=== PATIENT | female | born 1955 | race Caucasian/White ===

== ENCOUNTER 2020-01-30 05:44 | Observation (INO) | payer OTHER ==
[~2020-01-30] VITALS: Ht 160 cm; Wt 81.6 kg
--- NOTE | 2020-01-30 05:51 | Emergency Department Note ---
History of Present Illnes History of Present Illness Chief Complaint: Respiratory History of Present Illness This is a 64 year old female presents to the ED for MAXIMO since yesterd ay. Denies fevers. . (ANTONIO CARRERA DO) Past Medical/Family History Physician Review I have reviewed the patient's past medical and family history. Any updates have been documented here. (ANTONIO CARRERA DO) Social History Smoking Cessation: Current every day smoker Counseling Performed: Yes Alcohol Use: None Any Illegal Drug Use: No (ANTONIO CARRERA DO) Review of Systems Review of Systems Review of other systems All other systems reviewed and negative. (ANTONIO CARRERA DO) Physical Exam Related Data Allergies: Coded Allergies: No Known Allergies (Unverified , 01/30/20) Vital signs reviewed: Yes (ANTONIO CARRERA DO) Physical Exam CONSTITUTIONAL Constitutional: obese, ill appearing HENT HENT: normocephalic, atraumatic, oropharynx clear/moist, nose normal HENT L/R: left ext ear normal, right ext ear normal EYES Eyes: PERRL, conjunctivae normal NECK Neck: ROM normal PULMONARY Pulmonary: effort normal, breath sounds normal CARDIOVASCULAR Cardiovascular: regular rhythm, heart sounds normal, capillary refill normal, normal rate GASTROINTESTINAL Abdominal: soft, nontender, bowel sounds normal GENITOURINARY Genitourinary: exam deferred SKIN Skin: warm, dry MUSCULOSKELETAL Musculoskeletal: ROM normal NEUROLOGICAL Neurological: alert, oriented x 3, no gross motor or sensory deficits PSYCHOLOGICAL Psychological: mood/affect normal, judgement normal (ANTONIO CARRERA DO) Pulmonary: other (decreased BS's throughout with minimal end-exp wheezes) Cardiovascular: murmur (2/6 sys murmur) (YOLI BAHENA MD) Results Laboratory Laboratory Laboratory Tests Test 01/30/20 06:30 01/30/20 06:10 01/30/20 06:06 Lactic Acid Level 1.6 mmol/L (0.5-2.0) White Blood Count 14.99 x10e3/uL (4.8-10.8) Red Blood Count 5.18 x10e6/uL (3.6-5.1) Hemoglobin 15.3 g/dL (12.0-16.0) Hematocrit 44.9 % (34.2-44.1) Mean Corpuscular Volume 86.7 fL (81-99) Mean Corpuscular Hemoglobin 29.5 pg (28-32) Mean Corpuscular Hemoglobin Concent 34.1 g/dL (31-35) Red Cell Distribution Width 13.3 % (11.7-14.4) Platelet Count 296 x10e3/uL (140-360) Neutrophils (%) (Auto) 70.7 % (38.7-80.0) Lymphocytes (%) (Auto) 19.2 % (18.0-39.1) Monocytes (%) (Auto) 6.3 % (4.4-11.3) Eosinophils (%) (Auto) 2.4 % (0.0-6.0) Basophils (%) (Auto) 0.9 % (0.0-1.0) Neutrophils # (Auto) 10.6 (2.1-6.9) Lymphocytes # (Auto) 2.9 (1.0-3.2) Monocytes # (Auto) 1.0 (0.2-0.8) Eosinophils # (Auto) 0.4 (0.0-0.4) Basophils # (Auto) 0.1 (0.0-0.1) Absolute Immature Granulocyte (auto 0.08 x10e3/uL (0-0.1) Prothrombin Time 11.8 seconds (11.9-14.5) Prothromb Time International Ratio 0.82 Sodium Level 142 mmol/L (136-145) Potassium Level 4.6 mmol/L (3.5-5.1) Chloride Level 102 mmol/L (98-107) Carbon Dioxide Level 27 mmol/L (22-29) Anion Gap 17.6 mmol/L (8-16) Blood Urea Nitrogen 9 mg/dL (7-26) Creatinine 0.75 mg/dL (0.57-1.11) Estimat Glomerular Filtration Rate > 60 ML/MIN (60-) BUN/Creatinine Ratio 12 (6-25) Glucose Level 121 mg/dL (74-118) Calcium Level 10.1 mg/dL (8.4-10.2) Total Bilirubin 1.0 mg/dL (0.2-1.2) Aspartate Amino Transf (AST/SGOT) 25 IU/L (5-34) Alanine Aminotransferase (ALT/SGPT) 20 IU/L (0-55) Alkaline Phosphatase 90 IU/L (40-150) Creatine Kinase 60 IU/L (29-168) Creatine Kinase MB 1.50 ng/mL (0-5.0) Troponin I 0.010 ng/mL (0-0.300) B-Type Natriuretic Peptide 559.9 pg/mL (0-100) Total Protein 7.3 g/dL (6.5-8.1) Albumin 3.8 g/dL (3.5-5.0) Globulin 3.5 g/dL (2.3-3.5) Albumin/Globulin Ratio 1.1 (0.8-2.0) Lab results reviewed: Yes (YOLI BAHENA MD) Imaging Imaging results reviewed: Yes Impressions EXAMINATION: CHEST SINGLE (PORTABLE) COMPARISON: None INDICATION: Shortness of breath ^Y ^ERMD ORDER ^[id number] ^0655 ^Y DISCUSSION: Frontal view of the chest obtained at 0654 hours. HEART AND MEDIASTINUM: The heart is top normal in size. The aorta is mildly tortuous. LINES: None. LUNGS/PLEURA: The lungs are well inflated and clear. Mild peribronchial thickening. No interstitial edema. No pleural effusion or pneumothorax. BONES AND SOFT TISSUES: No focal osseous lesion. There are bilateral adan in the lower neck. IMPRESSION: Mild peribronchial thickening suggestive of bronchitis. No infiltrates. Signed by: Dr. Melissa Kaufman MD on 01/30/2020 8:09 AM (YOLI BAHENA MD) Diagnostics Tests Diagnostic test(s) reviewed: Yes (YOLI BAHENA MD) Procedures 12 Lead ECG Interpretation Geometrician: Interpreted by ED physician Date: Jan 30, 2020 Time: 06:08 Prior COTTON FARMER tracings: reviewed Rhythm: sinus rhythm Rate: normal BPM: 60 QRS axis: normal ST segments normal: Yes T wave depression: V1, V2 Other findings: LVH with strain Clinical Impression: non-specific ECG (ANTONIO CARRERA DO) Date: Jan 30, 2020 Time: 05:59 (YOLI BAHENA MD) Critical Care Time Subsequent provider I assumed direction of critical care for this patient from another provider of my specialty. (ANTONIO CARRERA DO) Assessment & Plan Assessment & Plan Final Impression: (1) HYPERTENSIVE URGENCY (ANTONIO CARRERA DO) Final Impression: (1) HYPERTENSIVE URGENCY (2) ACUTE BRONCHITIS, UNSPECIFIED (3) CHRONIC OBSTRUCTIVE PULMONARY DISEASE, UNSPECIFIED Assessment & Plan admit, spoke with Dr Box (YOLI BAHENA MD) Depart Disposition: ADMITTED ANTONIO CARRERA DO Jan 30, 2020 05:51 YOLI BAHENA MD Jan 30, 2020 08:00
[2020-01-30] MEDS ORDERED: ALBUTEROL SULF 0.083% NEB SOLN 3 ML NEB NEB STA (05:52)
[2020-01-30] MEDS ORDERED: METHYLPREDNISOLONE SOD SUCC 125 MG/2ML VIAL IV ONE (06:00)
[2020-01-30] MEDS ORDERED: ALBUTEROL/IPRATROPIUM 3 ML NEB NEB ONE (06:00)
[2020-01-30 06:30] LABS: BASOPHILS # (AUTO) 0.1 (0.0-0.1); BASOPHILS % 0.9 % (0.0-1.0); EOSINOPHILS # (AUTO) 0.4 (0.0-0.4); EOSINOPHILS % 2.4 % (0.0-6.0); HEMATOCRIT 44.9 % (34.2-44.1); HEMOGLOBIN 15.3 g/dL (12.0-16.0); LYMPHOCYTES # (AUTO) 2.9 (1.0-3.2); LYMPHOCYTES % 19.2 % (18.0-39.1); MEAN CORPUSCULAR HEMOGLOBIN 29.5 pg (28-32); MEAN CORPUSCULAR HGB CONC 34.1 g/dL (31-35); MEAN CORPUSCULAR VOLUME 86.7 fL (81-99); MONOCYTES % 6.3 % (4.4-11.3); NEUTROPHILS # (AUTO) 10.6 (2.1-6.9); NEUTROPHILS % 70.7 % (38.7-80.0); PLATELET COUNT 296 x10e3/uL (140-360); RED BLOOD COUNT 5.18 x10e6/uL (3.6-5.1); RED CELL DISTRIBUTION WIDTH 13.3 % (11.7-14.4)
[2020-01-30 06:56] LABS: ALANINE AMINOTRANSFERASE 20 IU/L (0-55); ALBUMIN 3.8 g/dL (3.5-5.0); ALBUMIN/GLOBULIN RATIO 1.1 (0.8-2.0); ALKALINE PHOSPHATASE 90 IU/L (40-150); ANION GAP 17.6 mmol/L (8-16); BLOOD UREA NITROGEN 9 mg/dL (7-26); BUN/CREATININE RATIO 12 (6-25); CALCIUM 10.1 mg/dL (8.4-10.2); CARBON DIOXIDE 27 mmol/L (22-29); CHLORIDE 102 mmol/L (98-107); CREATINE KINASE 60 IU/L (29-168); CREATININE, SERUM 0.75 mg/dL (0.57-1.11); EST GLOMERULAR FILTRATION RATE > 60 ML/MIN (60-); GLUCOSE 121 mg/dL (74-118); INR 0.82; POTASSIUM 4.6 mmol/L (3.5-5.1); PROTHROMBIN TIME 11.8 seconds (11.9-14.5); SODIUM 142 mmol/L (136-145)
[2020-01-30] MEDS ORDERED: ALBUTEROL SULFATE HFA 8GM INHALATION AEROSOL INH PRN (08:00)
--- NOTE | 2020-01-30 08:12 | Diagnostic Imaging Report ---
EXAMINATION: CHEST SINGLE (PORTABLE) COMPARISON: None INDICATION: Shortness of breath ^Y ^ERMD ORDER ^[id number] ^0655 ^Y DISCUSSION: Frontal view of the chest obtained at 0654 hours. HEART AND MEDIASTINUM: The heart is top normal in size. The aorta is mildly tortuous. LINES: None. LUNGS/PLEURA: The lungs are well inflated and clear. Mild peribronchial thickening. No interstitial edema. No pleural effusion or pneumothorax. BONES AND SOFT TISSUES: No focal osseous lesion. There are bilateral adan in the lower neck. IMPRESSION: Mild peribronchial thickening suggestive of bronchitis. No infiltrates. Signed by: Dr. Meilssa Kaufman MD on 01/30/2020 8:09 AM
[2020-01-30] MEDS ORDERED: ONDANSETRON HCL INJ 2MG/ML 2ML 2 MG/ML VIAL IV PRN ×2 (08:15→12:30)
[2020-01-30] MEDS ORDERED: FUROSEMIDE INJ 10 MG/ML 2 ML VIAL IV ONE (08:15)
--- OUTSIDE RECORDS SUMMARY | 2020-01-30 08:20 | XMS REPORT | Continuity of Care Document ---
Author Author [facility] t Organization [facility] Address [address] [place] [address] Dr. Rose [address] [place] [phone] Phone Unavailable Care Team Providers Care Abrasive Worker Name Role Phone Mansoor BAHENA Attphys Unavailable Soumya GRANGER Admphys Unavailable Problems This patient has no known problems. Allergies, Adverse Reactions, Alerts This patient has no known allergies or adverse reactions. Medications This patient has no known medications. Procedures This patient has no known procedures. Results Test Description Test Time Test Comments Results Result Comments Source CHEST SINGLE (PORTABLE) 2020-01-30 08:08:00 [place] [id number] Patient Name: PADILLA VENTURA MR #: [id number] : 1955 Age/Sex: 64/F Req #: [id number] Adm Physician: Ordered by: ANTONIO CARRERA DO Report #: [id number] Location: ER Room/Bed: Procedure: [id number] DX/CHEST SINGLE (PORTABLE) Exam Date: 01/30/20 Exam Time: 06 REPORT STATUS: Signed EXAMINATION: CHEST SINGLE (PORTABLE) COMPARISON: None INDICATION: Shortness of breath Y ERMD ORDER [id number] Y DISCUSSION: Frontal view of the chest obtained at 0654 hours. HEART AND MEDIASTINUM: The heart is top normal in size. The aorta is mildly tortuous. LINES: None. LUNGS/PLEURA: The lungs are well inflated and clear. Mild peribronchial thickening. No interstitial edema. No pleural effusion or pneumothorax. BONES AND SOFT TISSUES: No focal osseous lesion. There are bilateral adan in the lower neck. IMPRESSION: Mild peribronchial thickening suggestive of bronchitis. No infiltrates. Signed by: Dr. Elif Kaufman MD on 01/30/2020 8:09 AM Dictated By: ELIF KAUFMAN MD 8 Transcribed By: MEÑO on 01/30/20808 COPY TO: ANTONIO CARRERA DO
--- NOTE | 2020-01-30 08:29 | NUR ---
CALLED RESPIRATORY TO INFORM THEM THAT PATIENT HAS A BREATHING TREATMENT ORDERED.
[2020-01-30] MEDS: CEFTRIAXONE SOD 1 GM/NS 50 ML 50 ML IV SCH (08:42)
--- NOTE | 2020-01-30 08:46 | NUR ---
Patient states that she has had abdominal bloating for 2 weeks and pain in her LLQ. Patient also states that she had an episode of blood in her stool once. Dr. Garcia informed. No other additonal oders given.
[2020-01-30] MEDS: AZITHROMYCIN 500MG/NS 250 ML 250 ML IV SCH (09:55)
[2020-01-30] MEDS: ASPIRIN 81 MG ENTERIC COATED PO SCH (09:57)
[2020-01-30] MEDS: NICOTINE 14 MG/EA PATCH TOP SCH (10:00)
--- NOTE | 2020-01-30 10:05 | NUR ---
Patient complaining of nausea. MD aware given order to administer Zofran.
[2020-01-30 10:29] LABS: CLARITY,URINE CLEAR (CLEAR); COLOR,URINE YELLOW (YELLOW); LEUKOCYTE ESTERASE ,URINE NEGATIVE (NEGATIVE); NITRITE,URINE NEGATIVE (NEGATIVE)
[2020-01-30 10:30] LABS: BILIRUBIN,URINE NEGATIVE (NEGATIVE); KETONES,URINE NEGATIVE (NEGATIVE); PROTEIN,URINE DIPSTICK 2+ (NEGATIVE); URINE UROBILINOGEN 0.2 mg/dL (0.2 - 1)
[2020-01-30 10:36] LABS: WBC,URINE (MAN) 0-5 /HPF (0-5)
[2020-01-30 10:37] LABS: BACTERIA,URINE MODERATE /HPF; EPITHELIAL CELLS,URINE FEW /LPF; YEAST,URINE FEW
--- NOTE | 2020-01-30 10:46 | NUR ---
Report attempted was told that nurse would call back.
--- NOTE | 2020-01-30 11:10 | NUR ---
ATTEMPTED TO CALL REPORT UNABLE TO GET IN CONTACT WITH RECEIVING NURSE.
--- NOTE | 2020-01-30 11:30 | NUR ---
ATTEMPTED TO CALL REPORT UNABLE TO GET IN CONTACT WITH RECEIVING NURSE.
--- NOTE | 2020-01-30 11:37 | NUR ---
Per lab patient's covid test is negative. aware.
--- NOTE | 2020-01-30 11:42 | NUR ---
Called loss prevention and safety manager for Dr. Box to notify them that patient is negative for Covid. Wad given verbal order that patient no longer has to go to the covid unit.
--- NOTE | 2020-01-30 11:49 | NUR ---
consult [id number] This is a 64 year old female presents to the ED for MAXIMO since yesterday. Denies fevers. . PATIENT seen and examined full note dictated SOB r/o pneumonia r/o fluid overload will follow
--- NOTE | 2020-01-30 11:54 | Diagnostic Imaging Report ---
EXAM: CT Chest WITHOUT intravenous contrast 01/30/2020 10:40 AM INDICATION: Shortness of breath COMPARISON: Chest radiograph of earlier the same day TECHNIQUE: Chest was scanned utilizing a multidetector helical scanner from the lung apex through the level of the adrenal glands without administration of IV contrast. Coronal and sagittal reformations were obtained. Routine protocol was performed. IV CONTRAST: None RADIATION DOSE: Total DLP: 479 mGy*cm. Dose modulation, iterative reconstruction, and/or weight based adjustment of the mA/kV was utilized to reduce the radiation dose to as low as reasonably achievable. COMPLICATIONS: None FINDINGS: LINES/ TUBES: None. LUNGS AND AIRWAYS: The central airways are patent. No focal consolidation or pulmonary edema. Minimal dependent subsegmental atelectasis. PLEURA: The pleural spaces are clear. HEART AND MEDIASTINUM: The thyroid gland is normal. No mediastinal, hilar or axillary lymphadenopathy. The heart is normal in size.. There is no pericardial effusion. Scattered atherosclerotic calcifications involve the thoracic aorta and coronary arteries. UPPER ABDOMEN: Hepatic steatosis. No acute findings. BONES: No acute osseous injury. No suspicious lytic or blastic lesions. SOFT TISSUES: Unremarkable. IMPRESSION: No acute intrathoracic abnormality. Hepatic steatosis. Atherosclerotic calcifications including of the coronary arteries. Signed by: Tobias Carney MD on 01/30/2020 11:51 AM
--- NOTE | 2020-01-30 12:20 | NUR ---
PATIENT RECEIVED FROM ER PER STRETCHER. ALERT AND VERBALLY RESPONSIVE, DENIED PAIN AT THIS TIME. ABLE TO TRANSFER SELF FROM STRETCHER TO BED. SKIN WARM AND DRY TO TOUCH, RESPIRATION EVEN AND UNLABORED, WITH O2 IN PLACE AT 2L VIA N/C. ABDOMEN SOFT AND NON DISTENDED. TELEMETRY BOX [address]. PATIENT ORIENTED TO SURROUNDINGS. BED IN LOWER POSITION, CALL LIGHT AT REACH. INSTRUCTED TO CALL FOR ASSISTANCE NEEDED.
[2020-01-30 12:25] VITALS: BP 144/41
[2020-01-30] MEDS ORDERED: MELATONIN 5 MG TABLET PO PRN (12:30)
[2020-01-30] MEDS ORDERED: HYDRALAZINE HCL 20 MG/ML VIAL IV PRN (12:30)
[2020-01-30] MEDS ORDERED: ACETAMINOPHEN 325 MG TAB PO PRN (12:30)
[2020-01-30 12:31] VITALS: BP 144/46
[2020-01-30] MEDS ORDERED: CHOLESTYRAMINE 4 GM PACKET PO PRN (12:45)
[2020-01-30 12:49] LABS: CREATINE KINASE MB 2.1 ng/mL (0-5.0)
[2020-01-30] MEDS ORDERED: FLUCONAZOLE 200 MG/100 ML 100 ML IV ONE (13:00)
[2020-01-30] MEDS ORDERED: SODIUM CHLORIDE 0.9% 250ML 250 ML ONE (13:15)
--- NOTE | 2020-01-30 15:45 | NUR ---
PATIENT IN BED WITH HEAD OF BED ELEVATED TALKING ON THE PHONE, NO DISTRESS NOTED. CALL LIGHT AT REACH.
[2020-01-30 15:51] VITALS: BP 135/54
--- NOTE | 2020-01-30 17:05 | Consultation ---
DATE OF CONSULTATION: CHIEF COMPLAINT: Dyspnea and cough. HISTORY OF PRESENT ILLNESS: The patient is a 64-year-old woman. She notes worsening dyspnea over 2 days. She noted some cough, but no phlegm production. She did not complain of fevers. She denied any chest pain. She came to the emergency department. She received some Solu-Medrol along with some oxygen and nebulizer. She also received some Lasix and feels much better. PAST SURGICAL HISTORY: Status post tubal ligation. PAST MEDICAL HISTORY: 1. History of "leaky heart valves in the past.". 2. No prior history of asthma or COPD. ALLERGIES: THERE ARE NO KNOWN DRUG ALLERGIES. SOCIAL HISTORY: The patient has been a smoker. She is not an active drinker. FAMILY HISTORY: Family history is noncontributory. REVIEW OF SYSTEMS: She has no fever. She has no headache. She is not having any neck pain. She denies any chest pain. She is not having any difficulty with palpitations. She did note some dyspnea that has improved. She has some cough. She has no abdominal pain. She has no nausea or vomiting. She has no leg edema. She has no focal neurological complaints. PHYSICAL EXAMINATION: VITAL SIGNS: The blood pressure is 144/46 and the saturation is 94%. Pulse is 63. HEENT: Shows no facial swelling or erythema. CARDIAC: Reveals regular rate and rhythm with normal S1 and S2. LUNGS: Auscultation of lungs reveals clear breath sounds bilaterally. There is a prolonged expiratory phase. ABDOMEN: Soft and nontender. There is no rebound or guarding. EXTREMITIES: Shows no leg edema or calf tenderness. There is no cyanosis or clubbing. SKIN: Shows no rashes. NEUROLOGICAL: Shows no focal abnormalities. LABORATORY DATA: White blood cell count is 14.99 and hemoglobin is 15.3. The platelet count is 296. The BUN to creatinine ratio is 9 to 0.75. The BNP is 559. Other electrolytes within normal limits. RADIOGRAPHIC DATA: CT scan of the chest shows no acute intrathoracic abnormality. There is some hepatic steatosis. IMPRESSION: 1. Chronic obstructive pulmonary disease with acute exacerbation. 2. Dyspnea. 3. Hepatic steatosis. PLAN: 1. Echocardiogram and cardiac evaluation. 2. Continue bronchodilators. 3. Low-dose Lasix. 4. Smoking cessation. MD RAUDEL Barrera/JUSTUSL /[id number]
--- NOTE | 2020-01-30 19:00 | NUR ---
RECEIVED PATIENT IN BEDSIDE SHIFT REPORT. PATIENT RESTING IN BED AT THIS TIME. NO SOB REPORTED. NO PAIN REPORTED. NO S&S OF DISTRESS NOTED. BED LOCKED IN LOWEST POSITION, SIDE RAILS UPX2, CALL LIGHT IN REACH.
--- NOTE | 2020-01-30 19:08 | NUR ---
BED SIDE SHIFT REPORT GIVEN TO ON COMING NURSE. PATIENT IN BED RESTING WITH CALL LIGHT AT REACH.
[2020-01-30] MEDS ORDERED: TRAZODONE HCL50 MG PO (20:11)
[2020-01-30] MEDS ORDERED: METOPROLOL TART50 MG PO (20:11)
[2020-01-30] MEDS ORDERED: PRAMIPEXOLE D0.25 MG PO (20:11)
[2020-01-30] MEDS ORDERED: SERTRALINE HCL100 MG PO (20:11)
[2020-01-30] MEDS ORDERED: LEVOTHYROXINE50 MCG PO (20:11)
[2020-01-30 20:52] VITALS: BP 152/67
[2020-01-30] MEDS: PRAMIPEXOLE DIHYDROCHLORIDE 0.25 MG TAB PO SCH (22:10)
[2020-01-30] MEDS: FAMOTIDINE 20 MG/2 ML VIAL IV SCH (22:10)
[2020-01-31] VITALS: BP 101/55
[2020-01-31 01:38] LABS: CREATINE KINASE MB 1.9 ng/mL (0-5.0)
[2020-01-31 04:00] VITALS: BP 116/63
[2020-01-31 06:45] LABS: BASOPHILS # (AUTO) 0.1 (0.0-0.1); BASOPHILS % 0.2 % (0.0-1.0); EOSINOPHILS # (AUTO) 3.3 (0.0-0.4); EOSINOPHILS % 15.3 % (0.0-6.0); HEMATOCRIT 40.4 % (34.2-44.1); HEMOGLOBIN 13.7 g/dL (12.0-16.0); LYMPHOCYTES # (AUTO) 1.6 (1.0-3.2); LYMPHOCYTES % 7.2 % (18.0-39.1); MEAN CORPUSCULAR HEMOGLOBIN 29.5 pg (28-32); MEAN CORPUSCULAR HGB CONC 33.9 g/dL (31-35); MEAN CORPUSCULAR VOLUME 86.9 fL (81-99); MONOCYTES # (AUTO) 1.1 (0.2-0.8); MONOCYTES % 5.2 % (4.4-11.3); NEUTROPHILS # (AUTO) 15.4 (2.1-6.9); NEUTROPHILS % 71.5 % (38.7-80.0); PLATELET COUNT 272 x10e3/uL (140-360); RED BLOOD COUNT 4.65 x10e6/uL (3.6-5.1); RED CELL DISTRIBUTION WIDTH 13.3 % (11.7-14.4)
[2020-01-31 07:16] LABS: ANION GAP 14.5 mmol/L (8-16); CALCIUM 9.7 mg/dL (8.4-10.2); CARBON DIOXIDE 27 mmol/L (22-29); CHLORIDE 104 mmol/L (98-107); CHOLESTEROL 203 MD/DL (0-199); CREATININE, SERUM 0.78 mg/dL (0.57-1.11); EST GLOMERULAR FILTRATION RATE > 60 ML/MIN (60-); GLUCOSE 136 mg/dL (74-118); HDL CHOLESTEROL 41 MG/DL (40-60); LDL CHOLESTEROL 141 MG/DL (60-130); POTASSIUM 4.5 mmol/L (3.5-5.1); SODIUM 141 mmol/L (136-145); TRIGLYCERIDES 103 MG/DL (0-149)
--- NOTE | 2020-01-31 07:21 | NUR ---
PATIENT SITTING UP IN BED WATCHING TV, NO COMPLAIN VOICED. CALL LIGHT AT REACH.
[2020-01-31 07:31] VITALS: BP 120/62
[2020-01-31 07:36] LABS: BLOOD UREA NITROGEN 18 mg/dL (7-26); BUN/CREATININE RATIO 23 (6-25)
[2020-01-31 07:49] VITALS: BP 120/62
[2020-01-31 07:57] LABS: CREATINE KINASE MB 1.8 ng/mL (0-5.0)
[2020-01-31] MEDS: CEFTRIAXONE SOD 1 GM/NS 50 ML 50 ML IV SCH (08:00)
[2020-01-31] MEDS: NICOTINE 14 MG/EA PATCH TOP SCH (09:00)
[2020-01-31] MEDS: FAMOTIDINE 20 MG/2 ML VIAL IV SCH (09:12)
[2020-01-31] MEDS: PRAMIPEXOLE DIHYDROCHLORIDE 0.25 MG TAB PO SCH (09:12)
[2020-01-31] MEDS: ASPIRIN 81 MG ENTERIC COATED PO SCH (09:12)
[2020-01-31] MEDS: AZITHROMYCIN 500MG/NS 250 ML 250 ML IV SCH (09:42)
--- NOTE | 2020-01-31 11:09 | Progress Note ---
DATE: SUBJECTIVE: The patient's white blood cell count is increased to 21.6 this morning. She denies any fevers. She is not complaining of congestion or cough. She does report a history of intermittent diarrhea, although she did not have diarrhea yesterday. PHYSICAL EXAMINATION: VITAL SIGNS: The blood pressure is 120/62, saturation is 95%, and the pulse is 54. HEENT: Shows no facial swelling or erythema. CARDIAC: Reveals regular rate and rhythm with normal S1 and S2. LUNGS: Auscultation of lungs reveals clear breath sounds bilaterally. There is no wheezing. ABDOMEN: Soft and nontender. There is no rebound or guarding. EXTREMITIES: Shows no leg edema or calf tenderness. There is no cyanosis or clubbing. SKIN: Shows no rashes. Preliminary echocardiogram report shows normal left ventricular function with some mild aortic insufficiency and some mild concentric left ventricular hypertrophy. LABORATORY DATA: BUN to creatinine ratio and electrolytes are within normal limits. White blood cell count is 21.6 and hemoglobin is 13.7. The platelet count is 272. IMPRESSION: 1. Chronic obstructive pulmonary disease with acute exacerbation. 2. Hepatic steatosis. 3. Leukocytosis. 4. History of intermittent diarrhea. PLAN: 1. Continue current antibiotics and await final culture results. 2. Continue bronchodilators. 3. Await official echocardiogram report. Obed Foster MD [facility]/MODL /[id number]
[2020-01-31] MEDS ORDERED: ZITHROMAX500 MG PO (11:14)
[2020-01-31] MEDS ORDERED: LIPITOR10 MG PO (11:14)
[2020-01-31] MEDS ORDERED: ASPIRIN EC81 MG PO (11:14)
[2020-01-31 11:30] VITALS: BP 151/76
--- NOTE | 2020-01-31 11:30 | NUR ---
PATIENT SITTING UP IN BED TALKING TO FAMILY MEMBER VISITING. CALL LIGHT AT REACH.
--- NOTE | 2020-01-31 12:10 | Progress Note ---
DATE: SUBJECTIVE: The patient is seen and evaluated. Discussed with Dr. Bueno. Discussed with attending team. Overall, maybe about 45 minutes to 1 hour of presenting with the patient, answering question, physical exam and going through the notes including the emergency department notes. REVIEW OF SYSTEMS: The patient overall feels better. Respiratory failure improved significantly and she think she is ready to go home. No nausea, vomiting, fever, chills, or chest pain. The patient has chronic diarrhea, which is not new. She has her own GI physician that she sees on a regular basis. PHYSICAL EXAMINATION: VITAL SIGNS: Temperature 98.2, pulse 54, respirations 16, and blood pressure 120/62. GENERAL: Alert and oriented, no acute distress. CV: S1 and S2. CHEST: Equal expansion. Clear to auscultation. No acute distress. HEENT: Moist. No pallor. No JVD. EXTREMITIES: Moves all. No significant edema. MEDICATIONS: Medication list reviewed and as far as Infectious Disease point of view, the patient is on Zithromax and Rocephin. LABORATORY STUDIES: White count of 21.58, increased from 14.99 from yesterday, however, the patient had a dose of steroids in the emergency department. Hemoglobin is 13.7 and platelet 272. Sodium 141, potassium 4.5, and creatinine 0.78. AST of 25 and ALT of 20. Hemoglobin A1c 5.2. Lactic acid 1.6, within normal limit. Serology; coronavirus PCR not detected on 01/29. MICROBIOLOGY: Blood culture on 01/30/2020, is negative. Urine culture was slightly contaminated. RADIOLOGY STUDIES: CT of the chest 01/30/2020, showed no acute intrathoracic abnormality. ASSESSMENT AND PLAN: This is a pleasant 64-year-old lady came in with some shortness of breath, which has resolved. Workup is negative so far as mentioned above. Shortness of breath resolved. The patient think she is ready to go home. Her white count is up as mentioned above, however, the patient received a dose of steroids, most likely steroid-related. The patient can go home with oral Zithromax for 5 days and follow up with Dr. Bueno in 2 weeks. All these was very discussed with the patient and attending steam. Thank you for the consult. Case was discussed with Dr. Bueno, attending team, patient and all in agreement for discharge. Please refer to chart for more information. Dictated by Julian Del Angel) OSBALDO Del Castillo Haydee Bueno MD /MODL /[id number]
--- NOTE | 2020-01-31 13:35 | NUR ---
PATIENT DISCHARGED HOME. DISCHARGE INSTRUCTIONS, PRESCRIPTIONS, AND FOLLOW UP GIVEN TO PATIENT, SHE VERBALIZED UNDERSTANDING. IV TO LEFT AC REMOVED WITH TIP INTACT. ALL PERSONAL ITEMS TAKEN WITH PATIENT. REFUSED WHEEL CHAIR, BUT WAS ACCOMPANIED BY HOSPITAL STAFF TO FRONT LOBBY IN STABLE CONDITION.
--- NOTE | 2020-01-31 13:45 | Consultation ---
DATE OF CONSULTATION: REASON FOR CONSULTATION: Shortness of breath, cough, rule out pneumonia. HISTORY OF PRESENT ILLNESS: This patient who is a 64-year-old white female, comes in with 2 days of shortness of breath, cough, not feeling well. The cough was nonproductive. No fever, no chills. She came to the emergency room, received Solu-Medrol, oxygen, nebulizer. The patient received Lasix. She is feeling much better. The patient was admitted to the floor. PAST MEDICAL HISTORY: History of leaky valve in the past. PAST SURGICAL HISTORY: Tubal ligation. ALLERGIES: NKA. SOCIAL HISTORY: There is no smoking, drug abuse, or alcohol abuse. FAMILY HISTORY: Otherwise noncontributory. REVIEW OF SYSTEMS: HEENT: There is no headache, visual changes, hearing changes. GI: There is no nausea, no vomiting, no diarrhea. CARDIAC: There is no arrhythmia. NEURO: There is no seizure. No focal weakness. PHYSICAL EXAMINATION: GENERAL: Currently alert and oriented, does not seem to be in acute distress. VITAL SIGNS: Stable. Currently afebrile. HEENT: She is not icteric. NECK: Supple. CHEST: Clear. HEART: S1 and S2. ABDOMEN: Soft. IMPRESSION: Shortness of breath and cough, concerned about community-acquired pneumonia versus fluid overload, acute congestive heart failure. The patient received steroid. I agree with Rocephin and azithromycin. Recheck CBC. Recheck Chem panel. We will follow with you. Further recommendations to follow. MD SVETLANA Corral/MAYANK /[id number]
--- NOTE | 2020-02-01 04:27 | Discharge Summary ---
ADMISSION DIAGNOSES: 1. Bronchitis. 2. Elevated brain natriuretic peptide. 3. Urinary tract infection. 4. Candiduria. 5. Obesity with a BMI of 33.5. 6. Hypertension. 7. Hypothyroidism. 8. Tobacco use. DISCHARGE DIAGNOSES: 1. Bronchitis. 2. Elevated brain natriuretic peptide. 3. Urinary tract infection. 4. Candiduria. 5. Obesity with a BMI of 33.5. 6. Hypertension. 7. Hypothyroidism. 8. Tobacco use. 9. Rule out pneumonia. 10. Rule out coronavirus. 11. Rule out urinary tract infection. HISTORY: Hypertension, RLS, hypothyroidism. SURGICAL HISTORY: Tubal ligation. FAMILY HISTORY: The patient's mother and sister ongoing on diabetes. The patient's father had AAA. SOCIAL HISTORY: The patient admits to smoking 1 pack cigarettes a day. HOSPITAL COURSE: A 64-year-old female, who complains of shortness of breath and dyspnea on exertion for 2 days. She complains of intermittent productive cough, but she denies fever and congestion. On admission, chest x-ray showed mild peribronchial thickening suggestive of bronchitis. No infiltrates. CT of the chest showed no acute intrathoracic abnormalities, hepatic steatosis. Echo showed an EF of 50%. Urine culture came back contaminated. Blood culture was negative. After a couple days of IV antibiotics, the patient is feeling much better. Her cholesterol was found to be 203 and her LDL was found to be 141, so she was started on Lipitor. She will be discharged home with prescription for Zithromax per Infectious Disease, aspirin and Lipitor. The patient will follow up with primary care in 1 to 2 weeks. She understands discharge instructions and agrees to plan. Vital signs stable and the patient afebrile. Dictated by Khadijah Fowler NP Lenny Box MD [facility]/MODL /[id number]
== END 2020-01-31 13:15 | disposition home or self-care (01) ==
LOC: ER 05:44 → ERHOLD 08:05 → MED/SURG3 12:13
PROVIDERS: ADMIT Internal Medicine; ATTEND Internal Medicine
DX: J44.0 Chronic obstructive pulmonary disease with (acute) lower respiratory infection (principal); I16.0 Hypertensive urgency; J20.9 Acute bronchitis, unspecified; E03.9 Hypothyroidism, unspecified; Z83.3 Family history of diabetes mellitus; Z84.89 Family history of other specified conditions; B37.49 Other urogenital candidiasis; E66.9 Obesity, unspecified; Z68.33 Body mass index [BMI] 33.0-33.9, adult; Z72.0 Tobacco use; I10 Essential (primary) hypertension; J44.1 Chronic obstructive pulmonary disease with (acute) exacerbation; K76.0 Fatty (change of) liver, not elsewhere classified; D72.829 Elevated white blood cell count, unspecified
CPT/HCPCS: 36415; 71045; 71250; 80048; 80053; 80061; 81001; 82550 ×2; 82553 ×2; 83036; 83605; 83880; 84443; 84484 ×2; 85025 ×2; 85610; 87040; 87086; 87635; 93005; 93306; 94640; 99285; G0378 ×2; J0456; J0696; J1450; J2930; J7050

== ENCOUNTER 2020-07-15 01:21 | Emergency (ER) | payer OTHER ==
[~2020-07-15] VITALS: Ht 160 cm; Wt 81.6 kg
[~2020-07-15 01:21] MED LIST: ASPIRIN EC81 MG PO; LEVOTHYROXINE50 MCG PO; LIPITOR10 MG PO; METOPROLOL TART50 MG PO; PRAMIPEXOLE D0.25 MG PO; SERTRALINE HCL100 MG PO; TRAZODONE HCL50 MG PO; ZITHROMAX500 MG PO
[2020-07-15 02:42] LABS: BASOPHILS # (AUTO) 0.1 (0.0-0.1); EOSINOPHILS # (AUTO) 0.4 (0.0-0.4); EOSINOPHILS % 2.5 % (0.0-6.0); HEMATOCRIT 44.5 % (34.2-44.1); LYMPHOCYTES # (AUTO) 2.3 (1.0-3.2); LYMPHOCYTES % 16.1 % (18.0-39.1); MEAN CORPUSCULAR HGB CONC 33.7 g/dL (31-35); MEAN CORPUSCULAR VOLUME 85.9 fL (81-99); MONOCYTES # (AUTO) 0.7 (0.2-0.8); MONOCYTES % 5.1 % (4.4-11.3); NEUTROPHILS # (AUTO) 10.8 (2.1-6.9); NEUTROPHILS % 74.7 % (38.7-80.0); PLATELET COUNT 258 x10e3/uL (140-360); RED BLOOD COUNT 5.18 x10e6/uL (3.6-5.1)
[2020-07-15 02:51] LABS: ALANINE AMINOTRANSFERASE 16 IU/L (0-55); ALBUMIN 3.6 g/dL (3.5-5.0); ALBUMIN/GLOBULIN RATIO 1.1 (0.8-2.0); ALKALINE PHOSPHATASE 77 IU/L (40-150); ANION GAP 15.5 mmol/L (8-16); BLOOD UREA NITROGEN 11 mg/dL (7-26); BUN/CREATININE RATIO 15 (6-25); CALCIUM 8.9 mg/dL (8.4-10.2); CARBON DIOXIDE 21 mmol/L (22-29); CHLORIDE 107 mmol/L (98-107); CREATINE KINASE 118 IU/L (29-168); CREATININE, SERUM 0.75 mg/dL (0.57-1.11); EST GLOMERULAR FILTRATION RATE > 60 ML/MIN (60-); GLUCOSE 140 mg/dL (74-118); POTASSIUM 3.5 mmol/L (3.5-5.1); SODIUM 140 mmol/L (136-145)
[2020-07-15 03:24] VITALS: BP 119/72
== END 2020-07-15 03:35 | disposition home or self-care (01) ==
LOC: ER 01:38
DX: J44.0 Chronic obstructive pulmonary disease with (acute) lower respiratory infection (principal); I10 Essential (primary) hypertension; E03.9 Hypothyroidism, unspecified; F33.9 Major depressive disorder, recurrent, unspecified; G25.81 Restless legs syndrome; F17.211 Nicotine dependence, cigarettes, in remission
CPT/HCPCS: 36415; 71045; 80053; 82550; 82553; 83880; 84484; 85025; 93005; 99283